=== PATIENT | male | born 1980 | race African-American/Black ===

== ENCOUNTER 2020-06-09 22:01 | Emergency (ER) | payer BC ==
[~2020-06-09] VITALS: Ht 180.3 cm; Wt 111.6 kg
[2020-06-10] MEDS ORDERED: IBUPROFEN 800800 MG PO (00:09)
[2020-06-10] MEDS ORDERED: AMOXICILLIN 50500 M1 PO (00:09)
[2020-06-10 00:13] VITALS: BP 142/99
== END 2020-06-10 00:11 | disposition home or self-care (01) ==
LOC: ER 22:01
DX: K03.81 Cracked tooth (principal); F17.210 Nicotine dependence, cigarettes, uncomplicated